=== PATIENT | female | born 1990 | race Asian ===

== ENCOUNTER → 2021-05-22 10:32 | Outpatient (CLI) | payer OTHER, SELFPAY ==
--- NOTE | 2021-05-22 10:33 | DI.US.S_ITS ---
PROCEDURE: US OB <= 14 WEEKS FETUS INDICATIONS: DATING AND VIABILITY OUTSIDE/PRIOR DATING DATA: Last menstrual period (LMP): 02/09/2021. LMP-based estimated date of delivery (AMARJIT): 11/16/2021 First dating scan (date and location): 05/22/2021 Estimated date of delivery (AMARJIT) from first dating scan: 12/04/2021 TECHNIQUE: Real-time scanning was performed of the fetus and maternal pelvic organs, with image documentation. Endovaginal scanning was also performed to better visualize the fetus and maternal ovaries. COMPARISON: None. FINDINGS: Embryo: Regent-rump length measures 5.4 cm corresponding to 12 weeks 0 days. Small perigestational hemorrhage is present measuring 1.5 x 0.8 x 2.3 cm. Heart rate: 165 beats per minute. Measurement variability in dating: +/- 4 weeks by LMP, +/- 7 days by mean sac diameter (use before 6 weeks gestation if crown-rump length not able to be measured), +/- 5 days by crown-rump length (up to 8 weeks 6 days gestation), +/- 7 days by crown-rump length (up to 13 weeks 6 days gestation). Maternal organs: Ovaries are unremarkable . IMPRESSION: 1. Single live into with ultrasound gestational age of 12 weeks 0 days. 2. Small gestational sac hemorrhage. Dictated by: Lupe Toro M.D. on 05/22/2021 at 15:47 Approved by: Lupe Toro M.D. on 05/22/2021 at 15:50
== END ==
PROVIDERS: Referring Provider Family Medicine; Visit Provider Family Medicine
DX: Z34.01 Encounter for supervision of normal first pregnancy, first trimester (principal); Z3A.12 12 weeks gestation of pregnancy
CPT/HCPCS: 76801; 76817

== ENCOUNTER → 2021-05-28 12:37 | Outpatient (CLI) | payer OTHER, SELFPAY ==
[2021-05-28 13:12] LABS: Add Manual Diff / Slide Review NO; Basophils Absolute Auto 0 /uL (0-100); Basophils Percent Auto 0.1 % (0-2); Eosinophils Absolute Auto 0 /uL (0-450); Eosinophils Percent Auto 0.3 % (2-4); Hematocrit 37.8 % (36-46); Hemoglobin 12.4 g/dL (12.0-16.0); Lymphocytes Absolute Auto 1300 /uL (1100-4500); Lymphocytes Percent Auto 12.8 % (25-40); Mean Corpuscular HGB Conc 32.9 % (30-36); Mean Corpuscular Hemoglobin 28.3 PG (26-34); Monocytes Absolute Auto 600 /uL (0-900); Monocytes Percent Auto 5.5 % (3-14); Neutrophils Absolute Auto 8500 /uL (1500-7000); Neutrophils Percent Auto 81.3 % (50-75); Platelet Count 286 X10^3/uL (150-400); White Blood Cell Count 10.5 X10^3/uL (4.5-11.0)
[2021-05-28 13:47] LABS: Appearance Urine UA CLEAR; Bilirubin Urine UA NEGATIVE (NEGATIVE); Color Urine UA YELLOW; Glucose Urine UA TRACE g/dL (Negative); Ketones Urine UA NEGATIVE (NEGATIVE); Leukocyte Esterase Urine UA NEGATIVE (NEGATIVE); Nitrite Urine UA NEGATIVE (Negative); Occult Blood Urine UA NEGATIVE (Negative); Protein Urine UA NEGATIVE (Negative); Specific Gravity Urine UA 1.015 (1.000-1.035); Urobilinogen Urine UA 0.2 E.U./dL (0.2)
[2021-05-28 13:50] LABS: pH Urine UA 6.5 (4.5-8.0)
[2021-05-28 14:03] LABS: HIV 1 & 2 Ab/Ag 4th Gen Combo NEGATIVE (NEGATIVE); Hep C Virus Ab w/Reflex Quant NEGATIVE s/c (NEGATIVE)
[2021-05-28 14:24] LABS: Hepatitis B Surface Antigen NEGATIVE s/c (NEGATIVE)
[2021-05-29 05:21] LABS: Varicella IgG Antibody <135 index (Immune >165)
[2021-05-29 05:42] LABS: RPR Screen Non Reactive (Non Reactive)
== END ==
PROVIDERS: Referring Provider Family Medicine; Visit Provider Family Medicine
DX: Z34.01 Encounter for supervision of normal first pregnancy, first trimester (principal)
CPT/HCPCS: 36415; 80055; 81003; 86787; 86803; 86850; 86900; 86901; 87086; 87389

== ENCOUNTER 2021-06-12 15:44 | Emergency (ER) | payer OTHER, SELFPAY ==
[2021-06-12 16:18] VITALS: BP 101/63; PULSE 69; RESP 18; TEMP 36.8; O2SAT 96; BMI 21.7
== END 2021-06-12 19:42 | disposition left against medical advice (07) ==
PROVIDERS: Emergency Provider Emergency Medicine
CPT/HCPCS: 99281

== ENCOUNTER → 2021-07-23 13:59 | Outpatient (CLI) | payer OTHER, SELFPAY ==
--- NOTE | 2021-07-23 14:00 | DI.US.S_ITS ---
PROCEDURE: US OB >= 14 WEEKS FETUS INDICATIONS: ANATOMY OUTSIDE/PRIOR DATING DATA: Last menstrual period (LMP): 02/09/2021. LMP-based estimated date of delivery (AMARJIT): 11/16/2021 . First dating scan (date and location): 05/22/2021 . Estimated date of delivery (AMARJIT) from first dating scan: 12/04/2021 . TECHNIQUE: Real-time scanning was performed of the fetus, with image documentation and biometric measurements. Endovaginal scanning: No COMPARISON: [facility], OB <= 14 WEEKS FETUS, 05/22/2021, 9:51. FINDINGS: General: A single living intrauterine gestation is present. Presentation: Vertex. Placenta: Placental position is posterior , without previa. Amniotic fluid index: 13.5 cm, normal range is 5-24 cm. heart rate: 157 beats per minute. Maternal cervical canal: 4.3 cm long. Normal lower limit is 2.5 cm. biometrics: Biparietal diameter: 20 weeks 6 days Head circumference: 21 weeks Abdominal circumference: 21 weeks 1 day Femur length: 20 weeks 5 days Estimated gestational age from initial scan: 20 weeks 6 days Composite gestational age from present scan: 21 weeks Estimated weight and percentile: 389 g; 58th percentile Measurement variability for biometric dating: +/- 7 days from 14 weeks to 15 weeks 6 days gestation, +/- 10 days from 16 weeks to 21 weeks 6 days gestation, +/- 2 weeks from 22 weeks to 27 weeks 6 days gestation, +/- 3 weeks for 28 weeks gestation or later. weight reference: 4500 g or EFW >90/95% is considered macrosomia or large for gestational age. EFW <10% is small for gestational age. EFW 5% or less is considered intra-uterine growth restriction. Anatomic survey: Neuro: Ventricles are non-dilated at less than 10 mm. Cisterna magna is normal at 3-11 mm. Cerebellum is normal in size and morphology. Nuchal skin fold: Normal at less than 6 mm between 14-21 weeks gestational age. Face: Nose and lips, facial profile are normal. Spine: No evidence for spina bifida. Heart: 4-chambered heart is present, with normal ventricular outflow tracts. Diaphragm: Diaphragm is intact. Stomach: Left-sided stomach is present. Kidneys: No hydronephrosis. Normal is less than 5 mm in 2nd trimester, less than 7 mm in 3rd trimester. Cord: 3-vessel cord has orthotopic insertion. Bladder: Normal in size. Extremities: All 4 extremities identified. IMPRESSION: 1. Normal interval growth. 2. Normal anatomic survey. Dictated by: Christopher Delgado [facility] Interpreted: Marlyn Patterson MD on 07/23/2021 at 16:21 Transcribed by: JD on 07/23/2021 at 16:23 Approved by: Marlyn Patterson M.D. on 07/23/2021 at 17:44
== END ==
PROVIDERS: PCP Family Medicine; Referring Provider Family Medicine; Visit Provider Family Medicine
DX: Z36.89 Encounter for other specified antenatal screening (principal); Z3A.21 21 weeks gestation of pregnancy
CPT/HCPCS: 76811

== ENCOUNTER → 2021-09-14 08:39 | Outpatient (CLI) | payer OTHER, SELFPAY ==
[2021-09-14 10:34] LABS: Hemoglobin 9.9 g/dL (12.0-16.0)
[2021-09-14 10:55] LABS: GTT (PREG) 1 Hour PP 50gm Dose 160 mg/dL (76-139)
== END ==
PROVIDERS: PCP Family Medicine; Referring Provider Family Medicine; Visit Provider Family Medicine
DX: Z34.90 Encounter for supervision of normal pregnancy, unspecified, unspecified trimester (principal); Z3A.26 26 weeks gestation of pregnancy
CPT/HCPCS: 36415; 82950; 85014; 85018

== ENCOUNTER → 2021-09-27 08:17 | Outpatient (CLI) | payer OTHER, SELFPAY ==
[2021-09-27 09:09] LABS: Glucose Tol Interp,Gestational INTERPRETATION
[2021-09-27 09:54] LABS: Glucose Fasting Gestational 75 mg/dL (76-95)
== END ==
PROVIDERS: PCP Family Medicine; Referring Provider Family Medicine; Visit Provider Family Medicine
DX: Z34.90 Encounter for supervision of normal pregnancy, unspecified, unspecified trimester (principal); R73.09 Other abnormal glucose
CPT/HCPCS: 36415; 82951; 82952

== ENCOUNTER → 2021-11-12 10:09 | Outpatient (CLI) | payer OTHER, SELFPAY ==
[2021-11-13 12:15] LABS: Strep Grp B PCR POS for Grp B Strep
== END ==
PROVIDERS: PCP Family Medicine; Visit Provider Family Medicine
DX: Z34.83 Encounter for supervision of other normal pregnancy, third trimester (principal); Z3A.36 36 weeks gestation of pregnancy
CPT/HCPCS: 87653

== ENCOUNTER 2021-12-08 02:49 | Inpatient (IN) | payer OTHER, SELFPAY ==
[2021-12-08 03:42] VITALS: BP 122/72
[2021-12-08 04:27] LABS: Add Manual Diff / Slide Review NO; Basophils Absolute Auto 0 /uL (0-100); Basophils Percent Auto 0.3 % (0-2); Eosinophils Absolute Auto 0 /uL (0-450); Eosinophils Percent Auto 0.4 % (2-4); Hematocrit 31.9 % (36-46); Hemoglobin 10.3 g/dL (12.0-16.0); Lymphocytes Absolute Auto 1800 /uL (1100-4500); Lymphocytes Percent Auto 15.8 % (25-40); Mean Corpuscular HGB Conc 32.4 % (30-36); Mean Corpuscular Hemoglobin 25.3 PG (26-34); Mean Corpuscular Volume 77.9 fL (80-100); Monocytes Absolute Auto 800 /uL (0-900); Monocytes Percent Auto 7.2 % (3-14); Neutrophils Absolute Auto 8800 /uL (1500-7000); Neutrophils Percent Auto 76.3 % (50-75); Platelet Count 252 X10^3/uL (150-400); Red Blood Cell Count 4.09 X10^6/uL (4.0-5.2); Red Cell Distribution Width 15.2 % (11.6-14.8); White Blood Cell Count 11.5 X10^3/uL (4.5-11.0)
[2021-12-08] MEDS: LACTATED RINGERS 1,000 ML 100 ML IV ×2 (05:00→10:35)
[2021-12-08 05:09] LABS: COVID19 -Nasal RAPID Negative (Negative)
[2021-12-08] MEDS: PENICILLIN G POTASSIUM 5,000,000 UNIT in DEXTROSE 5% IN WATER 250 ML IV (05:10)
[2021-12-08] MEDS: PENICILLIN G POTASSIUM 3,000,000 UNIT/50 ML FROZ.PIGGY 100 UNIT IV ×2 (09:22→13:06)
--- NOTE | 2021-12-08 09:43 | PM.OBHP.1 ---
OB HPI Date/Time Date of admission: 12/08/21 Date Patient Seen: 12/08/21 Time Patient Seen: 09:43 History of Present Condition Chief complaint: contractions : 1 Para: 0 Estimated Date of Delivery: 12/04/21 Estimated Gestational Age (weeks): 40 Narrative: Fabiana Ceja is a 31 year old female admitted in early labor with spontaneous rupture membranes clear bloody fluid History of Present care: good care Dating criteria: based on 1st trimester US only Ultrasounds: normal mid trimester US Narrative: 1 hour glucose of 160 patient unable to tolerate 3 hour glucose tolerance test she monitor blood sugars which were normal so no evidence of gestational diabetes Preadmission Labs Blood type: O (+) positive -: Antibody screen: negative, GBS status: positive, HBsAG: negative, HIV: negative and RPR/VDLR: negative -: Chlamydia screen: not detected and Gonorrhea screen: not detected -: Rubella: immune and Varicella: not immune HCAB: negative 1 hr GTT: 160 Narrative: unable to tolerate 3 hour glucose tolerance test normal fingerstick blood sugars Evaluation Evaluation Baseline heart rate: 145 Variability: Moderate (11-25) monitor accelerations: Present Monitor Decelerations: Absent Contraction Frequency (minutes): 4 Uterine Contraction Intensity: Strong/Firm Category of Tracing: Reactive Status: Category l Dilation (cm): 4 Effacement (%): 100 station: 0 Position of cervix: mid PFSH Medical History Abnormal Pap smear of cervix (~2015) Depression (~10/2020) Hemorrhoids (~2010) TMJ (temporomandibular joint disorder) (~2019) Family History Mother H. pylori infection Father Hypertension Hyperlipidemia Stroke Grandmother Diabetes mellitus Grandfather Unknown family medical history Grandmother Throat cancer Grandfather No problems noted. Family/Other Diabetes mellitus Social History marital status: number of children: 0 household members: spouse lives independently: Yes caregiver/support person: No housing: house pets and animals: No education level: high school occupational status: unemployed current occupational exposures/hazards: No Previous occupational history: [employer]. sugar/anabaptism: Muslim special sugar needs: No seatbelt use: always do you feel safe at home: Yes Smoking Status: Never smoker second hand exposure: Yes (Her Dad smokes outside, sometimes gets a draft when she is nearby.) alcohol intake: never substance use type: does not use during the past year weight has: increased > 10 lbs well-balanced diet: daily or most days (But had been vomiting a lot until the last 2 days. Encouraged online nutrition class. ) daily servings fruits/ve-1 caffeine: No (Stopped coffee with .) Type(s) of exercise: none frequency: does not exercise Meds Home Medications and Allergies Home Medications Medication Instructions Recorded Confirmed Type prenat.vits,claudia,nsy-[id number] 1 tab PO DAILY 05/24/21 12/08/21 History psyllium husk 3.4 gram/5.4 gram 1 tbsp PO ONCE 05/24/21 12/08/21 History oral powder (Metamucil) pyridoxine (vitamin B6) 100 mg 50 mg PO BID 05/24/21 12/08/21 History tablet blood glucose test strips #100 ea 10/02/21 12/08/21 Rx blood-glucose meter #1 ea 10/02/21 12/08/21 Rx lancets #100 ea 10/02/21 12/08/21 Rx Double Electric Breast Pump and #1 ea 10/08/21 12/08/21 Rx supplies Allergies Allergy/AdvReac Type Severity Reaction Status Date / Time No Known Drug Allergies Allergy Verified 05/24/21 10:18 Review of Systems Review of Systems Narrative: Patient the end having contractions followed by rupture membranes 1:30 a.m. with bloody show. No headaches, scotomata, epigastric pain. Good movement. OB Exam Narrative Exam Narrative: Blood pressure 111/69, pulse of 73, temperature 36.1? HEENT exam within normal limits. Lungs are clear to auscultation and percussion. Heart is regular rate and rhythm no S3-S4 murmurs. Abdomen is gravid. Fetus is vertex. Extremities are without edema and nontender. Objective Labs Result Diagrams: 12/08/21 04:05 Labs: Laboratory Results - last 24 hr 12/08/21 12/08/21 12/08/21 04:05 04:05 04:53 WBC 11.5 H RBC 4.09 Hgb 10.3 L Hct 31.9 L MCV 77.9 L MCH 25.3 L MCHC 32.4 RDW 15.2 H Plt Count 252 Neut % (Auto) 76.3 H Lymph % (Auto) 15.8 L [place] % (Auto) 7.2 Eos % (Auto) 0.4 L Baso % (Auto) 0.3 Neut # (Auto) 8800 H Lymph # (Auto) 1800 [place] # (Auto) 800 Eos # (Auto) 0 Baso # (Auto) 0 SARS-CoV-2 (PCR) Negative Blood Type O Positive Antibody Screen Negative Assessment and Plan Assessment and Plan Assessment and Plan narrative: 40 week gestation with spontaneous rupture membranes in active labor. Patient is receiving penicillin for positive group B strep culture. She is requesting epidural for pain control. Anticipate vaginal delivery. Time Spent with Patient Total time spent with greater than 50% in coordination of care (as documented) at patient's floor/unit and/or counseling patient:: less than 15 minutes
[2021-12-08] MEDS: FENT 2MCG/ML BUPIV 0.125% EPI 200 MCG/100 ML PLAST..BAG 10 MCG EPIDURAL (10:36)
[2021-12-08] MEDS: OXYTOCIN PREMIX 30 UNIT/500 ML PLAST..BAG IV (12:08)
--- NOTE | 2021-12-08 16:41 | P.PCNOB_ITS ---
Labor & Delivery Delivery date: 12/08/21 Intrapartal Events: None Cervical ripening method: none Induction method: none Delivery augmentation: pitocin Delivery monitor: external FHT and external uterine Route of delivery: L&D Laceration Description: Perineal - 2nd Degree Delivery repair: vicryl (2 0) and chromic (3 0) Estimated blood loss (mL): 500 Anesthesia Type: Epidural Narrative: Patient arrived on Labor and delivery after spontaneous rupture membranes. She went into active labor. She received penicillin IV for positive group B strep culture. she received an epidural catheter for pain control. The contractions decreased after epidural so she was begun on Pitocin. heart tones category 1 to category 2 throughout labor. The viable female was delivered over an intact perineum a placed on maternal abdomen. After the cord stopped pulsating the cord was clamped, cut, and cord bloods obtained. The placenta delivered spontaneously, intact, with 3 vessels. There were no cervical tears. A second-degree perineal tear was repaired in 2 layers the 1st layer 2 0 Vicryl than the 2nd layer 3 0 chromic. Patient did have a moderate amount of bleeding with delivery of the placenta but responded well to IV Pitocin. ROM 14 hours and 55 minutes, 1st stage of labor 13 hours 55 minutes, 2nd stage of labor 28 minutes, 3rd stage of labor 6 minutes. [place] Baby 1: gender: Female Presentation: vertex Position: Left Occiput Anterior Placenta delivery description: Spontaneous Cord Vessel Description: 3 Vessels score (1 min): 8 score (5 min): 9 weight: 6 lb 7 oz Narrative: 2941 g Plan for aftercare: Routine care
[2021-12-08] MEDS: ACETAMINOPHEN 325 MG TABLET 650 MG PO (18:44)
[2021-12-08] MEDS: IBUPROFEN 600 MG TABLET PO (18:45)
[2021-12-08] MEDS: LANOLIN OINT 7 GM 1 APPLIC TOP (21:28)
[2021-12-08] MEDS: DERMOPLAST SPRAY 20% 60 ML 1 SPRAY TOP (21:28)
[2021-12-09 06:31] LABS: Add Manual Diff / Slide Review NO; Basophils Absolute Auto 0 /uL (0-100); Basophils Percent Auto 0.2 % (0-2); Eosinophils Absolute Auto 100 /uL (0-450); Eosinophils Percent Auto 0.5 % (2-4); Hematocrit 21.7 % (36-46); Hemoglobin 7.1 g/dL (12.0-16.0); Lymphocytes Absolute Auto 1600 /uL (1100-4500); Lymphocytes Percent Auto 10.8 % (25-40); Mean Corpuscular HGB Conc 32.5 % (30-36); Mean Corpuscular Hemoglobin 25.3 PG (26-34); Mean Corpuscular Volume 77.8 fL (80-100); Monocytes Absolute Auto 900 /uL (0-900); Monocytes Percent Auto 5.9 % (3-14); Neutrophils Absolute Auto 12700 /uL (1500-7000); Neutrophils Percent Auto 82.6 % (50-75); Platelet Count 203 X10^3/uL (150-400); Red Blood Cell Count 2.79 X10^6/uL (4.0-5.2); Red Cell Distribution Width 15.3 % (11.6-14.8); White Blood Cell Count 15.3 X10^3/uL (4.5-11.0)
--- NOTE | 2021-12-09 08:02 | PM.OBPN.1 ---
Subjective - OB Subjective Patient comments: no complaints, pain well controlled and tolerating diet baby status: doing well feeding status: breast and bottle feeding Date Patient Seen: 12/09/21 Time Patient Seen: 07:40 Interval history: Denies complaints. Overnight she did pass out when she got up for the first time. Since then she has not had any dizziness or lightheadedness the 2 subsequent time she has gotten out of bed. Vaginal bleeding is light to moderate. Pain primarily is at the site of her hemorrhoids and reasonably well controlled. No issues in the . She is breast and bottle feeding. Exam Vital Signs (past 8 hours): Temperature 99.5? blood pressure 100/57 heart rate 85 respirations 16 Narrative Exam Narrative: General: Awake and alert, no acute distress. HEENT: NCAT, EOMI, moist oral mucosa CV: Regular rate and rhythm, no murmurs, rubs or gallops Lungs: CTAB, no wheezes, rales, or rhonchi Abdomen: Soft, nontender; bowel tones active; uterus firm at umbilicus Extremities: Warm, no edema Objective Labs Result Diagrams: 12/09/21 06:10 Labs: Laboratory Results - last 24 hr 12/09/21 06:10 WBC 15.3 H RBC 2.79 L Hgb 7.1 L Hct 21.7 L MCV 77.8 L MCH 25.3 L MCHC 32.5 RDW 15.3 H Plt Count 203 Neut % (Auto) 82.6 H Lymph % (Auto) 10.8 L [place] % (Auto) 5.9 Eos % (Auto) 0.5 L Baso % (Auto) 0.2 Neut # (Auto) 98298 H Lymph # (Auto) 1600 [place] # (Auto) 900 Eos # (Auto) 100 Baso # (Auto) 0 Assessment & Plan Assessment and Plan (1) Vaginal delivery: Status: Acute (2) Acute blood loss anemia: Status: Acute Plan day: 1 plan OB: routine care Comments: 31-year-old 1 day after spontaneous vaginal delivery. She had more bleeding than expected after delivery which responded to Pitocin only. She had a syncopal episode overnight but no continued events. Denies dizziness or lightheadedness. Vitals are stable and bleeding appropriate. H&H did drop though not to transfusion thresholds. Will continue iron and monitor bleeding carefully. Re-evaluate later today for discharge tonight versus tomorrow morning. Time Spent With Patient Time: Total time spent is greater than 50% in coordination of care (as documented) at patient's floor/unit and/or counseling patient: Time with patient: less than 15 minutes
[2021-12-09] MEDS: IBUPROFEN 600 MG TABLET PO (09:25)
[2021-12-09] MEDS: FERROUS SULFATE 325 MG TABLET PO (09:25)
[2021-12-09] MEDS: DOCUSATE 100 MG CAPSULE PO (09:25)
[2021-12-09 16:25] VITALS: BP 108/72; PULSE 90; RESP 16; TEMP 36.9
--- NOTE | 2021-12-09 16:25 | P.DS_ITS ---
Discharge Providers Provider Date of admission: 12/08/21 02:49 Discharge Date: 12/09/21 Primary care physician: Danielle Agosto DO Consults: 12/09/21 16:38 Consult to Rn Clinical Documentation Specialist Routine Comment: Discharge provider: Danielle Agosto DO Summary Hospital Course Date Patient Seen: 12/09/21 Diagnoses: 40 weeks of Spontaneous vaginal delivery Acute blood loss anemia Hospital Course: 31-year-old G1 now P1 status post spontaneous vaginal delivery on 12/08/21. Patient presented after rupture membranes at home. She went on to receive an epidural and deliver a vigorous female with Dr. Duran. A second-degree laceration was repaired in the usual fashion. She had more bleeding than expected after delivery which responded to Pitocin. course has been uncomplicated. She is breast-feeding well. Ambulating, voiding, passing flatus. Vaginal bleeding is decreasing. Pain controlled with ibuprofen and Tylenol. She is receiving iron due to acute blood loss anemia from delivery and denies symptoms of anemia. Patient was advised to call for fevers, severe pain or bleeding through more than a pad an hour. She will follow-up in clinic in 6 weeks but we will also be seeing her with her if concerns arise before then. Peripartum Data Infant Delivery Method: Natural Vaginal Laceration Description: Perineal - 2nd Degree complications: none 1: Gender: Female Discharge Diagnosis (1) Vaginal delivery: Status: Acute (2) Acute blood loss anemia: Status: Acute Time Spent with Patient Time attestation: Total time spent providing and/or coordinating discharge services: Time spent: Less than 30 minutes Objective Labs Result Diagrams: 12/09/21 06:10 Labs: Laboratory Results - last 24 hr 12/09/21 06:10 WBC 15.3 H RBC 2.79 L Hgb 7.1 L Hct 21.7 L MCV 77.8 L MCH 25.3 L MCHC 32.5 RDW 15.3 H Plt Count 203 Neut % (Auto) 82.6 H Lymph % (Auto) 10.8 L [place] % (Auto) 5.9 Eos % (Auto) 0.5 L Baso % (Auto) 0.2 Neut # (Auto) 07713 H Lymph # (Auto) 1600 [place] # (Auto) 900 Eos # (Auto) 100 Baso # (Auto) 0 Exam Vital Signs (past 8 hours): General: Awake and alert, no acute distress. HEENT: NCAT, EOMI, moist oral mucosa CV: Regular rate and rhythm, no murmurs, rubs or gallops Lungs: CTAB, no wheezes, rales, or rhonchi Abdomen: Soft, nontender; bowel tones active; uterus firm 1 cm below umbilicus Extremities: Warm, no edema, 2+ pedal pulses bilaterally Discharge Plan Discharge Plan Patient Disposition: Home Discharge orders & Medications Prescriptions: New ferrous sulfate 325 mg (65 mg iron) Tablet 325 mg PO DAILY Qty: 30 0RF docusate sodium 100 mg Capsule 100 mg PO BID Qty: 30 0RF ibuprofen 600 mg Tablet 600 mg PO Q6HR PRN (Reason: Pain, Mild (1-3)) Qty: 30 0RF Continued prenat.vits,claudia,jdg-dwnc-yiwlo Tablet 1 tab PO DAILY 0RF Metamucil 3.4 gram/5.4 gram powder 1 tbsp PO ONCE 0RF Rx Instructions: mix into at least 8 oz of water or juice before administering Discontinued (DME) blood glucose test strips See Rx Instructions .Route .MEDSUPPLY Qty: 100 11RF Rx Instructions: Use new test strip each time to check blood glucose up to 4 times daily (DME) blood-glucose meter Misc See Rx Instructions .ROUTE .MEDSUPPLY Qty: 1 0RF Rx Instructions: Use to test blood sugar daily as directed (DME) lancets Misc See Rx Instructions .ROUTE .MEDSUPPLY Qty: 100 11RF Rx Instructions: Use to test blood sugar 4 times daily (DME) Double Electric Breast Pump and supplies See Rx Instructions .ROUTE .MEDSUPPLY Qty: 1 0RF Rx Instructions: Use daily as directed pyridoxine (vitamin B6) 100 mg tablet 50 mg PO BID 0RF Follow up/Referrals: Danielle Agosto DO [Primary Care Provider] - 6 Weeks ('s office will give you an appointment at baby's 1st visit; for 6 weks) Visit Report/Discharge Packet Instructions: DI for Labor and Delivery, Vaginal Visit Report Forms: Patient Portal/API, Stroke Signs & Symptoms Discharge Data Primary Care Provider: Danielle Agosto Discharges patient from system. Discharge Date/Time: 12/09/21 18:16
== END 2021-12-09 18:16 | disposition home or self-care (01) | DRG 806 ==
PROVIDERS: Admitting Provider Specialist; PCP Family Medicine; Referring Provider Specialist; Visit Provider Specialist
DX: O42.02 Full-term premature rupture of membranes, onset of labor within 24 hours of rupture (principal); D62 Acute posthemorrhagic anemia; Z37.0 Single live birth; O90.81 Anemia of the puerperium; Z3A.40 40 weeks gestation of pregnancy; O70.1 Second degree perineal laceration during delivery; O99.824 Streptococcus B carrier state complicating childbirth; Z20.822 Contact with and (suspected) exposure to COVID-19
CPT/HCPCS: 01967; 36415; 59050; 59400; 59409; 85025; 86850; 86900; 86901; 87635; C9803; G0379; J2540; J2590

== ENCOUNTER 2023-11-25 14:02 | Emergency (ER) | payer OTHER, SELFPAY ==
[2023-11-25 14:06] VITALS: BP 110/72; PULSE 89; RESP 18; TEMP 36.4; O2SAT 97; BMI 23.8
--- NOTE | 2023-11-25 14:10 | DI.RAD.S_ITS ---
PROCEDURE: XR CHEST 1V INDICATIONS: chest pain TECHNIQUE: One view of the chest was acquired. COMPARISON: None. FINDINGS: Surgical changes and devices: None. Lungs and pleura: Lungs are clear. No pleural effusions or pneumothorax. Mediastinum: Mediastinal contours appear normal. Heart size is normal. Bones and chest wall: No suspicious bony lesions. Overlying soft tissues appear unremarkable. IMPRESSION: No acute cardiopulmonary abnormality is seen. Dictated by: Edwin Salmeron M.D. on 11/25/2023 at 14:43 Approved by: Edwin Salmeron M.D. on 11/25/2023 at 14:43
[2023-11-25 14:39] LABS: Add Manual Diff / Slide Review NO; Basophils Absolute Auto 0 /uL (0-100); Basophils Percent Auto 0.6 % (0-2); Eosinophils Absolute Auto 0 /uL (0-450); Eosinophils Percent Auto 0.7 % (2-4); Hematocrit 38.2 % (36-46); Hemoglobin 12.9 g/dL (12.0-16.0); Lymphocytes Absolute Auto 1900 /uL (1100-4500); Lymphocytes Percent Auto 28.9 % (25-40); Mean Corpuscular HGB Conc 33.6 % (30-36); Mean Corpuscular Hemoglobin 28.3 PG (26-34); Mean Corpuscular Volume 84.1 fL (80-100); Monocytes Absolute Auto 400 /uL (0-900); Monocytes Percent Auto 6.1 % (3-14); Neutrophils Absolute Auto 4300 /uL (1500-7000); Neutrophils Percent Auto 63.7 % (50-75); Platelet Count 296 X10^3/uL (150-400); Red Blood Cell Count 4.54 X10^6/uL (4.0-5.2); Red Cell Distribution Width 13.4 % (11.6-14.8); White Blood Cell Count 6.7 X10^3/uL (4.5-11.0)
[2023-11-25 14:41] LABS: Prothrombin Time 11.9 SECONDS (9.4-12.5)
[2023-11-25 14:44] LABS: PTT Partial Thromboplastin Tim 35 SECONDS (25.1-36.5)
[2023-11-25 14:46] LABS: Alanine Aminotransferase 17 IU/L (<35); Albumin 4.4 g/dL (3.5-5.0); Albumin Globulin Ratio 1.2 (1.0-2.8); Alkaline Phosphatase 54 U/L (38-126); Aspartate Aminotransferase 23 IU/L (14-36); BUN Creatinine Ratio 15.7 (6-22); Bilirubin Total 0.4 mg/dL (0.2-1.3); Blood Urea Nitrogen 8 mg/dL (7-17); Calcium 9.6 mg/dL (8.4-10.2); Carbon Dioxide 26 mmol/L (22-32); Chloride 103 mmol/L (98-107); Creatine Kinase 36 U/L (30-135); Estimated Glomerular Filt Rate > 60 mL/min (>60); Globulin 3.6 g/dL (1.7-4.1); Glucose 112 mg/dL (70-100); HEMOLYSIS < 15 (0-50); Lipase 78 U/L (23-300); Potassium 3.9 mmol/L (3.4-5.1); Sodium 138 mmol/L (137-145)
[2023-11-25 14:58] LABS: Troponin I < 0.012 ng/mL (0.01-0.034)
[2023-11-25 16:20] VITALS: BP 122/63; PULSE 68; O2SAT 95
[2023-11-25 17:24] LABS: Influenza A - CEPHEID Flu A NEGATIVE (NEGATIVE); Influenza B - CEPHEID Flu B NEGATIVE (NEGATIVE); Respiratory Syncytial Virus Negative (Negative)
[2023-11-25 17:26] LABS: COVID-19 CEPHEID 4-PLEX PCR Negative (Negative)
--- NOTE | 2023-11-25 18:08 | ED_ITS ---
HPI - Chest Pain General Chief Complaint: Chest Pain Stated Complaint: chest pain, chills, back pain Time Seen by Provider: 11/25/23 14:23 History of Present Illness HPI narrative: 33-year-old female with no reported past medical history presents by private vehicle from home for evaluation of central, sharp, nonradiating chest pain that she noticed when she woke up at 6:30 a.m. this morning. Pain has improved since waking up this morning. She is never felt anything like this before and wanted to be evaluated to make sure that ?everything is okay?. Reports family history of heart disease in her mother, no other history of coronary disease. Patient denies use of oral contraceptives, recent surgeries or long trips. No history of blood clots or leg swelling. Related Data Home Medications Medication Instructions Recorded Confirmed prenat.vits,claudia,[id number] 1 tab PO DAILY 05/24/21 12/08/21 psyllium husk 3.4 gram/5.4 gram 1 tbsp PO ONCE 05/24/21 12/08/21 oral powder (Metamucil) Previous Rx's Medication Instructions Recorded docusate sodium 100 mg capsule 100 mg PO BID #30 caps 12/09/21 ibuprofen 600 mg tablet 600 mg PO Q6HR PRN Pain, Mild 12/20/21 (1-3) #30 tabs ferrous sulfate 325 mg (65 mg 325 mg PO DAILY #30 tabs 01/06/22 iron) tablet Allergies Allergy/AdvReac Type Severity Reaction Status Date / Time No Known Drug Allergies Allergy Verified 05/24/21 10:18 Review of Systems Review of Systems Narrative: Negative except as noted above Patient History Medical History (Updated 11/25/23 @ 18:10 by Dayana Garza MD) Spontaneous vaginal delivery Depression (~10/2020) Abnormal Pap smear of cervix (~2015) Hemorrhoids (~2010) TMJ (temporomandibular joint disorder) (~2019) Family History Mother H. pylori infection Father Hypertension Hyperlipidemia Stroke Grandmother Diabetes mellitus Grandfather Unknown family medical history Grandmother Throat cancer Grandfather No problems noted. 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 sugar/druze: Rastafarian special sugar needs: No seatbelt use: always do you feel safe at home: Yes Smoking Status: Never smoker second hand exposure: Yes (Her Dad smokes outside, sometimes gets a draft when she is nearby.) alcohol intake: never substance use type: does not use during the past year weight has: increased > 10 lbs well-balanced diet: daily or most days daily servings fruits/ve-1 caffeine: No (Stopped coffee with .) Type(s) of exercise: none frequency: does not exercise Smoking Status: Never smoker alcohol intake frequency: other Substance Use Type: does not use Exam Initial Vital Signs Initial Vital Signs: Vital Signs Temperature 97.6 F 11/25/23 14:06 Pulse Rate 89 11/25/23 14:06 Respiratory Rate 18 11/25/23 14:06 Blood Pressure 110/72 11/25/23 14:06 Pulse Oximetry 97 11/25/23 14:06 Oxygen Delivery Method Room Air 11/25/23 14:06 Const: Awake, alert, no acute distress, nontoxic appearing Eyes: PERRL, EOMI, conjunctiva normal ENT: Atraumatic, dentition normal, mucous membranes moist Cardiac: regular rate, regular rhythm, reproducible chest pain over anterior sternum RESP: unlabored, clear bilaterally, no wheezing GI: Atraumatic, soft, nontender, nondistended, no rebound, no guarding MSK: Atraumatic, full range of motion, pulses equal Skin: Warm, Dry, intact, no rashes Neuro: AO x3, CN II-XII grossly intact, moves all extremities Psych: affect normal, mood normal, not suicidal, not homicidal Course Course Course Narrative: anterior chest wall pain reproducible to palpation. PERC negative. Heart score 1 based on family hx of heart disease. Trop negative. EKG NSR without concerning findings. Patient advised on taking tylenol and motrin prn for pain and to use chest wall stretching excercises. PCP follow up advised. Orders Ordered: ED Orders 11/25/23 14:10 XR chest 1V Stat 11/25/23 14:16 EKG-12 Lead Stat 11/25/23 14:20 Complete Blood Count AUTO DIFF Stat Comprehensive Metabolic Panel Stat Lipase Stat Magnesium Stat PTT Partial Thromboplastin Brian Stat Prothrombin Time INR Stat Troponin & CK Cardiac Panel Stat 11/25/23 16:32 Covid-19 + FLU A/B + RSV - PCR Stat Discontinued Medications Aspirin (Aspirin 81 Mg Chew Tab) 324 mg PO NOW ONE Stop: 11/25/23 14:10 Vital Signs Vital signs: Vital Signs - 8 hr 11/25/23 14:06 11/25/23 16:20 Temperature 97.6 F Pulse Rate 89 68 Respiratory Rate 18 Blood Pressure 110/72 122/63 Pulse Oximetry 97 95 Oxygen Delivery Method Room Air Room Air MDM - Chest Pain Differential Diagnosis Differential diagnosis: Likely fracture of rib, pneumothorax and atypical chest pain Lab Data 11/25/23 14:20 11/25/23 14:20 Labs: Lab Results 11/25/23 11/25/23 Range/Units 14:20 16:32 WBC 6.7 (4.5-11.0) X10^3/uL RBC 4.54 (4.0-5.2) X10^6/uL Hgb 12.9 (12.0-16.0) g/dL Hct 38.2 (36-46) % MCV 84.1 (80-100) fL MCH 28.3 (26-34) PG MCHC 33.6 (30-36) % RDW 13.4 (11.6-14.8) % Plt Count 296 (150-400) X10^3/uL Neut % (Auto) 63.7 (50-75) % Lymph % (Auto) 28.9 (25-40) % [place] % (Auto) 6.1 (3-14) % Eos % (Auto) 0.7 L (2-4) % Baso % (Auto) 0.6 (0-2) % Neut # (Auto) 4300 (3602-8663) /uL Lymph # (Auto) 1900 (4253-0632) /uL [place] # (Auto) 400 (0-900) /uL Eos # (Auto) 0 (0-450) /uL Baso # (Auto) 0 (0-100) /uL PT 11.9 (9.4-12.5) SECONDS INR 1.0 (0.9-1.3) APTT 35 (25.1-36.5) SECONDS Sodium 138 (137-145) mmol/L Potassium 3.9 (3.4-5.1) mmol/L Chloride 103 (98-107) mmol/L Carbon Dioxide 26 (22-32) mmol/L BUN 8 (7-17) mg/dL Creatinine 0.51 L (0.52-1.04) mg/dL Estimated GFR > 60 (>60) mL/min BUN/Creatinine Ratio 15.7 (6-22) Glucose 112 H (70-100) mg/dL Calcium 9.6 (8.4-10.2) mg/dL Magnesium 2.0 (1.6-2.3) mg/dL Total Bilirubin 0.4 (0.2-1.3) mg/dL AST 23 (14-36) IU/L ALT 17 (<35) IU/L Alkaline Phosphatase 54 (38-126) U/L Total Creatine Kinase 36 (30-135) U/L Troponin I < 0.012 (0.01-0.034) ng/mL Total Protein 8.0 (6.3-8.2) g/dL Albumin 4.4 (3.5-5.0) g/dL Globulin 3.6 (1.7-4.1) g/dL Albumin/Globulin Ratio 1.2 (1.0-2.8) Lipase 78 (23-300) U/L SARS-CoV-2 (PCR) Negative (Negative) Influenza A (RT-PCR) Flu a negative (NEGATIVE) Influenza B (RT-PCR) Flu b negative (NEGATIVE) RSV (PCR) Negative (Negative) ECG Data Interpretation: NSR rate 85. normal GA intervals. No ST-T wave changes, no STEMI Discharge Plan Departure Patient Disposition: Home Clinical Impression: Chest wall pain Instructions: DI for Atypical Chest Pain Activity Restrictions/Additional Instructions: Your EKG today was completely normal without any findings of a heart attack. Your laboratory work and chest x-ray were also normal. Your chest pain was reproduced with palpation of the chest wall, this is usually referred to as costochondritis. Take Tylenol and Motrin as needed for pain, use gentle stretching exercises to stretch out your chest wall. Follow up as needed with your primary care physician. Prescriptions: No Action ibuprofen 600 mg tablet 600 mg PO Q6HR PRN (Reason: Pain, Mild (1-3)) Qty: 30 1RF ferrous sulfate 325 mg (65 mg iron) tablet 325 mg PO DAILY Qty: 30 2RF prenat.vits,claudia,[id number] Tablet 1 tab PO DAILY Metamucil 3.4 gram/5.4 gram powder 1 tbsp PO ONCE Rx Instructions: mix into at least 8 oz of water or juice before administering docusate sodium 100 mg Capsule 100 mg PO BID Qty: 30 0RF Referrals: Danielle Agosto DO [Primary Care Provider] - Stand Alone Forms: Patient Portal/API
[2023-11-25 18:15] VITALS: BP 116/72; PULSE 84; RESP 16; O2SAT 97
== END 2023-11-25 18:15 | disposition home or self-care (01) ==
PROVIDERS: Emergency Medicine; Student in an Organized Health Care Education/Training Program; Emergency Provider Emergency Medicine; PCP Family Medicine
DX: R07.89 Other chest pain (principal); Z20.822 Contact with and (suspected) exposure to COVID-19
CPT/HCPCS: 0241U; 36415; 71045; 80053; 82550; 83690; 83735; 84484; 85025; 85610; 85730; 93005; 93010; 99283; 99284

== ENCOUNTER → 2025-08-09 16:26 | Outpatient (CLI) | payer BC, OTHER, SELFPAY ==
--- NOTE | 2025-08-09 16:27 | DI.RAD.S_ITS ---
PROCEDURE: XR KNEE RT 3V INDICATIONS: Right knee pain/popping 2 months TECHNIQUE: 3 views of the knee were acquired. COMPARISON: None. FINDINGS: Bones: No fractures or dislocations. No suspicious bony lesions. Early marginal osteophyte formation in the medial and patellofemoral compartments with preserved joint spaces. Soft tissues: No joint effusion. No suspicious soft tissue calcifications. IMPRESSION: Early osteoarthritis. Dictated by: Pepe Ortiz M.D. on 08/10/2025 at 9:10 Approved by: Pepe Ortiz M.D. on 08/10/2025 at 9:11
== END ==
LOC: RAD 16:27
PROVIDERS: PCP Student in an Organized Health Care Education/Training Program; Referring Provider Nurse Practitioner Family; Visit Provider Nurse Practitioner Family
DX: M25.561 Pain in right knee (principal); M17.11 Unilateral primary osteoarthritis, right knee
CPT/HCPCS: 73562

== ENCOUNTER → 2025-10-10 15:30 | Outpatient (CLI) | payer BC, OTHER, SELFPAY ==
[2025-10-10 16:30] LABS: Alanine Aminotransferase 10 IU/L (<35); Albumin 4.4 g/dL (3.5-5.0); Albumin Globulin Ratio 1.6 (1.0-2.8); Alkaline Phosphatase 49 U/L (38-126); Blood Urea Nitrogen 13 mg/dL (7-17); Calcium 9.1 mg/dL (8.4-10.2); Carbon Dioxide 28 mmol/L (22-32); Chloride 105 mmol/L (98-107); Estimated Glomerular Filt Rate > 60 mL/min (>60); Globulin 2.8 g/dL (1.7-4.1); Glucose 87 mg/dL (70-99); HEMOLYSIS < 15 (0-50); Potassium 4.2 mmol/L (3.4-5.1); Sodium 141 mmol/L (137-145); Total Protein 7.2 g/dL (6.3-8.2)
[2025-10-11 08:25] LABS: Appearance Urine UA CLOUDY; Bilirubin Urine UA NEGATIVE (NEGATIVE); Color Urine UA YELLOW; Glucose Urine UA NEGATIVE (Negative); Ketones Urine UA NEGATIVE (NEGATIVE); Leukocyte Esterase Urine UA NEGATIVE (NEGATIVE); Nitrite Urine UA NEGATIVE (Negative); Occult Blood Urine UA NEGATIVE (Negative); Protein Urine UA NEGATIVE (Negative); Specific Gravity Urine UA 1.015 (1.000-1.035); Urobilinogen Urine UA 0.2 E.U./dL (0.2)
[2025-10-11 08:28] LABS: pH Urine UA 7.0 (4.5-8.0)
[2025-10-11 08:30] LABS: Culture Indicated Urine Cult Not Indicated
== END ==
PROVIDERS: PCP Student in an Organized Health Care Education/Training Program; Referring Provider Student in an Organized Health Care Education/Training Program; Visit Provider Student in an Organized Health Care Education/Training Program
DX: R10.A0 Flank pain, unspecified side (principal)
CPT/HCPCS: 36415; 80053; 81001